=== PATIENT | female | born 1975 | race Two or more races ===

== ENCOUNTER 2021-03-09 11:48 | Emergency (ER) | payer MEDICAID, OTHER ==
[~2021-03-09] VITALS: Ht 172.7 cm; Wt 95.3 kg
[2021-03-09 13:01] VITALS: BP 107/58
[2021-03-09] MEDS ORDERED: ACETAMINOPHEN/CODEINE#3 (300/30mg) TAB PO ONE (14:45)
[2021-03-09] MEDS ORDERED: ONDANSETRON ODT 4 MG TAB PO ONE (14:45)
== END 2021-03-09 14:50 | disposition home or self-care (01) ==
LOC: EDBD 11:48 → ER 11:48
DX: G43.909 Migraine, unspecified, not intractable, without status migrainosus (principal); I10 Essential (primary) hypertension
CPT/HCPCS: 70450; 99284; Q0162